=== PATIENT | male | born 1980 | race African-American/Black ===

== ENCOUNTER 2016-09-06 18:24 | Emergency (ER) | payer SELFPAY ==
[~2016-09-06] VITALS: Ht 182.9 cm; Wt 79.5 kg
[~2016-09-06 18:24] MED LIST: OMEP20TA PO
[2016-09-06 18:25] VITALS: BP 130/77; PULSE 77; RESP 15; TEMP 98.2; O2SAT 100
[2016-09-06] MEDS ORDERED: SODIUM CHLOR 0.9% 1000 ML INJ 1,000 ML IV SCH (18:42)
[2016-09-06] MEDS ORDERED: SODIUM CHLORIDE 0.9% FLUSH 10 ML FLUSH IV FLUSH PRN (18:45)
[2016-09-06] MEDS ORDERED: PANTOPRAZOLE SODIUM 40 MG VIAL IVP ONE (18:45)
--- NOTE | 2016-09-06 18:48 | PD ---
HPI Chief Complaint: Abdominal Pain Time Seen by Provider: 18:43 Travel History International Travel<30 days: No Contact w/Intl Traveler<30days: No Traveled to known affect area: No History of Present Illness HPI 36-year-old male presents to the emergency department for evaluation of a diffuse abdominal pain that started on Tuesday after snorting and smoking cocaine. Patient has history of gastritis. He states this is similar to gastritis, but worse. Patient denies any nausea vomiting. No diarrhea or constipation. Patient denies any history of abdominal surgeries. No fevers or chills. Patient states that he drinks a 4 pack of beer approximately 3-4 days a week. Patient denies any other medical problems. He takes no prescribed medications. Patient denies any chest pain or SOB. [facility] Social History Alcohol Use: Yes Tobacco Use: Yes (5-6 CIGARETTES/DAY.) Substance Use: Yes (MARIJUANA, cocaine) Allergies-Medications (Allergen,Severity, Reaction): Coded Allergies: No Known Allergies (Verified , 09/06/16) Reported Meds & Prescriptions Reported Meds & Active Scripts Active Omeprazole 20 Mg Tab 20 Mg PO DAILY Review of Systems Except as stated in HPI: all other systems reviewed are Neg Physical Exam Narrative GENERAL: Well-nourished, well-developed male patient, ambulatory. Afebrile. SKIN: Focused skin assessment warm/dry. HEAD: Normocephalic. Atraumatic. EYES: No scleral icterus. No injection or drainage. NECK: Supple, trachea midline. No JVD or lymphadenopathy. CARDIOVASCULAR: Regular rate and rhythm without murmurs, gallops, or rubs. RESPIRATORY: Breath sounds equal bilaterally. No accessory muscle use. Lungs sounds are clear to auscultation. GASTROINTESTINAL: Abdomen soft and nondistended. Nontender. MUSCULOSKELETAL: No cyanosis, or edema. BACK: Nontender without obvious deformity. No CVA tenderness. Data Data Last Documented VS Vital Signs Date Time Temp Pulse Resp B/P Pulse Ox O2 Delivery O2 Flow Rate FiO2 09/06/16 18:25 98.2 77 15 130/77 100 Orders Complete Blood Count With Diff (09/06/16 18:42) Comprehensive Metabolic Panel (09/06/16 18:42) Lipase (09/06/16 18:42) Ct Abd/Pel W Iv Contrast(Rout) (09/06/16 18:42) Iv Access Insert/Monitor (09/06/16 18:42) Ecg Monitoring (09/06/16 18:42) Oximetry (09/06/16 18:42) Pantoprazole Inj (Protonix Inj) (09/06/16 18:45) Sodium Chlor 0.9% 1000 Ml Inj (Ns 1000 M (09/06/16 18:42) Sodium Chloride 0.9% Flush (Ns Flush) (09/06/16 18:45) Iohexol 350 Inj (Omnipaque 350 Inj) (09/06/16 20:13) Labs Laboratory Tests Test 09/06/16 19:10 White Blood Count 3.3 TH/MM3 Red Blood Count 5.00 MIL/MM3 Hemoglobin 14.7 GM/DL Hematocrit 43.2 % Mean Corpuscular Volume 86.3 FL Mean Corpuscular Hemoglobin 29.5 PG Mean Corpuscular Hemoglobin 34.2 % Concent Red Cell Distribution Width 12.9 % Platelet Count 208 TH/MM3 Mean Platelet Volume 7.7 FL Neutrophils (%) (Auto) 46.6 % Lymphocytes (%) (Auto) 37.4 % Monocytes (%) (Auto) 12.7 % Eosinophils (%) (Auto) 2.5 % Basophils (%) (Auto) 0.8 % Neutrophils # (Auto) 1.5 TH/MM3 Lymphocytes # (Auto) 1.2 TH/MM3 Monocytes # (Auto) 0.4 TH/MM3 Eosinophils # (Auto) 0.1 TH/MM3 Basophils # (Auto) 0.0 TH/MM3 CBC Comment DIFF FINAL Differential Comment Sodium Level 139 MEQ/L Potassium Level 4.0 MEQ/L Chloride Level 103 MEQ/L Carbon Dioxide Level 30.6 MEQ/L Anion Gap 5 MEQ/L Blood Urea Nitrogen 13 MG/DL Creatinine 1.19 MG/DL Estimat Glomerular Filtration 85 ML/MIN Rate Random Glucose 79 MG/DL Calcium Level 8.5 MG/DL Total Bilirubin 0.5 MG/DL Aspartate Amino Transf 17 U/L (AST/SGOT) Alanine Aminotransferase 16 U/L (ALT/SGPT) Alkaline Phosphatase 47 U/L Total Protein 7.9 GM/DL Albumin 4.0 GM/DL Lipase 94 U/L [facility] Medical Decision Making Medical Screen Exam Complete: Yes Emergency Medical Condition: Yes Medical Record Reviewed: Yes Interpretation(s) CT abdomen/pelvis - CONCLUSION: No acute CT findings in the abdomen or pelvis. Differential Diagnosis Gastritis versus pancreatitis versus diverticulitis Narrative Course 36-year-old male presents to the emergency department for evaluation of diffuse abdominal pain that started on Tuesday after snorting and smoking cocaine. CBC, CMP, lipase are ordered and pending. CT abdomen/pelvis with IV contrast is ordered and pending. Patient is given normal saline 1 L IV bolus and Protonix 40 mg IV. CBC shows WBC of 3.3. CMP is unremarkable. Lipase is 94. CT abdomen/pelvis shows no acute findings. Patient is stable for discharge. He will be discharged with a prescription for omeprazole. He verbalizes agreement and understanding. The patient was discharged in stable condition with instructions, including return instructions and follow up instructions. Diagnosis Primary Impression: Gastritis Qualified Code: K29.50 - Chronic gastritis without bleeding, unspecified gastritis type Referrals: Primary Care Physician 2 days Patient Instructions: Gastritis (ED), General Instructions Additional Instructions: Take Omeprazole as directed. Follow up with your primary care physician. Return to the emergency department for any acute, worsening of symptoms. Med/Other Pt SpecificInfo: Prescription(s) given Scripts Omeprazole 20 Mg Tab20 Mg PO DAILY #30 TAB Ref 0 Prov:Lissette Walker 09/06/16 Disposition: 01 DISCHARGE HOME Condition: Stable Lissette Walker September 06, 2016 18:48
[2016-09-06 19:30] LABS: AUTOMATED NEUTROPHIL # 1.5 TH/MM3 (1.8-7.7); BASOPHIL % 0.8 % (0.0-2.0); EOSINOPHIL # 0.1 TH/MM3 (0-0.4); EOSINOPHIL % 2.5 % (0.0-4.0); HEMATOCRIT 43.2 % (39.0-51.0); HEMO FLAGS DIFF FINAL; LYMPH % 37.4 % (9.0-44.0); LYMPHOCYTE # 1.2 TH/MM3 (1.0-4.8); MEAN CELL VOLUME 86.3 FL (80.0-100.0); MEAN CORPUSCULAR HEMOGLOBIN 29.5 PG (27.0-34.0); MEAN CORPUSCULAR HGB CONC 34.2 % (32.0-36.0); MONO % 12.7 % (0.0-8.0); NEUT % 46.6 % (16.0-70.0); PLATELET COUNT 208 TH/MM3 (150-450); RED CELL DISTRIBUTION WIDTH 12.9 % (11.6-17.2); WHITE BLOOD COUNT 3.3 TH/MM3 (4.0-11.0)
[2016-09-06 19:38] LABS: ANION GAP 5 MEQ/L (5-15); AST (GOT) 17 U/L (15-37); BICARBONATE 30.6 MEQ/L (21.0-32.0); BLOOD UREA NITROGEN 13 MG/DL (7-18); CHLORIDE 103 MEQ/L (98-107); GLOMERULAR FILTRATION RATE 85 ML/MIN (>89); SODIUM (NA) 139 MEQ/L (136-145)
[2016-09-06 19:41] LABS: ALKALINE PHOSPHATASE 47 U/L (45-117); ALT (GPT) 16 U/L (12-78); TOTAL BILIRUBIN ADULT 0.5 MG/DL (0.2-1.0)
[2016-09-06] MEDS ORDERED: IOHEXOL 350 MG/ML 10 ML VIAL (for RAD DIAG) IV ONE (20:13)
--- NOTE | 2016-09-06 20:33 | RADRPT ---
EXAM DATE/TIME: 09/06/2016 20:09 [place] COMPARISON: No previous studies available for comparison. INDICATIONS : Diffuse abdominal pain x3 days. IV CONTRAST: 94 cc Omnipaque 350 (iohexol) IV ORAL CONTRAST: No oral contrast ingested. RADIATION DOSE: 4.90 CTDIvol (mGy) MEDICAL HISTORY : None SURGICAL HISTORY : None. ENCOUNTER: Initial ACUITY: 3 days PAIN SCALE: 10/10 LOCATION: Bilateral abdomen TECHNIQUE: Volumetric scanning of the abdomen and pelvis was performed. Using automated exposure control and ad justment of the mA and/or kV according to patient size, radiation dose was kept as low as reasonably achievable to obtain optimal diagnostic quality images. FINDINGS: LOWER LUNGS: The visualized lower lungs are clear. LIVER: Homogeneous density without lesion. There is no dilation of the biliary tree. No calcified gallston es. SPLEEN: Normal size without lesion. PANCREAS: Within normal limits. KIDNEYS: Normal in size and shape. There is no mass, stone or hydronephrosis. ADRENAL GLANDS: Within normal limits. VASCULAR: There is no aortic aneurysm. BOWEL/MESENTERY: The stomach, small bowel, and colon demonstrate no acute abnormality. There is no free intraperitone al air or fluid. ABDOMINAL WALL: Within normal limits. RETROPERITONEUM: There is no lymphadenopathy. BLADDER: No wall thickening or mass. REPRODUCTIVE: Within normal limits. INGUINAL: There is no lymphadenopathy or hernia. MUSCULOSKELETAL: Within normal limits for patient age. CONCLUSION: No acute CT findings in the abdomen or pelvis. Vaibhav Orellana MD on September 06, 2016 at 20:29 Board Certified Radiologist. This report was verified electronically.
[2016-09-06] MEDS ORDERED: OMEP20TA PO (20:49)
== END 2016-09-06 22:09 | disposition home or self-care (01) ==
LOC: NEPD 18:24
DX: K29.50 Unspecified chronic gastritis without bleeding (principal); F14.10 Cocaine abuse, uncomplicated; F12.10 Cannabis abuse, uncomplicated; F10.10 Alcohol abuse, uncomplicated; Z72.0 Tobacco use
CPT/HCPCS: 74177; 80053; 83690; 85025; 96374; 99284; C9113; J7030; Q9967